=== PATIENT | female | born 1955 | race Caucasian/White ===

== ENCOUNTER 2022-04-29 11:37 | Emergency (ER) | payer MEDICARE, OTHER ==
[~2022-04-29] VITALS: Ht 162.6 cm; Wt 90.7 kg
[2022-04-29] MEDS ORDERED: Ativan0.5 MG PO (11:58)
[2022-04-29] MEDS ORDERED: DULO60 PO (11:58)
[2022-04-29] MEDS ORDERED: CLOP75 PO (11:58)
[2022-04-29] MEDS ORDERED: ISOSORBIDE MONO30 MG PO (11:58)
[2022-04-29] MEDS ORDERED: ELIQUIS5 M2 PO (12:02)
[2022-04-29] MEDS ORDERED: Methocarbamol500 MG PO (12:02)
[2022-04-29] MEDS ORDERED: Zestril40 MG PO (12:02)
[2022-04-29] MEDS ORDERED: SUBVENITE150 M1 PO (12:02)
== END 2022-04-29 12:11 | disposition home or self-care (01) ==
LOC: ER 11:37
DX: Z76.0 Encounter for issue of repeat prescription (principal); Z88.0 Allergy status to penicillin; Z88.5 Allergy status to narcotic agent; Z79.899 Other long term (current) drug therapy; Z79.01 Long term (current) use of anticoagulants
CPT/HCPCS: 99281

== ENCOUNTER → 2022-09-17 | Outpatient (CLI) | payer MEDICARE, OTHER ==
[~2022-09-17] MED LIST: Ativan0.5 MG PO; CLOP75 PO; DULO60 PO; ELIQUIS5 M2 PO; ISOSORBIDE MONO30 MG PO; Methocarbamol500 MG PO; SUBVENITE150 M1 PO; Zestril40 MG PO
== END | disposition home or self-care (01) ==
LOC: LAB 17:10 → LAB SHORT 17:10
DX: R30.0 Dysuria (principal)
CPT/HCPCS: 87086

== ENCOUNTER 2023-01-22 08:46 | Emergency (ER) | payer MEDICARE, OTHER ==
[~2023-01-22] VITALS: Ht 167.6 cm; Wt 90.7 kg
[~2023-01-22 08:46] MED LIST changes: +AMLODIPINE BESYL5 MG PO; +ATOR40TA PO; +CARVEDILOL25 M9 PO; +DOXAZOSIN MESYLA1 M2 PO; +HYDCHL25 PO; +LAMO25 PO; +LURASIDONE HCL20 MG PO; +LURASIDONE HCL40 MG PO; +METFORMIN HCL500 M3 PO; +PANTOPRAZOLE SO40 M2 PO; +TRESIBA FL100 UNIT/2 SC; +Ventolin/Prove6.7 GM INH
[2023-01-22 09:41] VITALS: BP 146/78
== END 2023-01-22 10:09 | disposition home or self-care (01) ==
LOC: ER 08:46
DX: G47.00 Insomnia, unspecified (principal); T50.995A Adverse effect of other drugs, medicaments and biological substances, initial encounter; I50.9 Heart failure, unspecified; I25.10 Atherosclerotic heart disease of native coronary artery without angina pectoris; I25.2 Old myocardial infarction; E11.9 Type 2 diabetes mellitus without complications; E05.90 Thyrotoxicosis, unspecified without thyrotoxic crisis or storm; Z88.0 Allergy status to penicillin; Z88.5 Allergy status to narcotic agent; X58.XXXA Exposure to other specified factors, initial encounter
CPT/HCPCS: 99284

== ENCOUNTER 2024-01-10 13:22 | Observation (INO) | payer MEDICARE, OTHER ==
[~2024-01-10] VITALS: Ht 162.6 cm; Wt 94.3 kg
[2024-01-10 14:10] LABS: BASOPHILS ABSOLUTE AUTO 0.07 K/mm3 (0.00-0.23); BASOPHILS PERCENT AUTO 1 % (0-2); EOSINOPHILS ABSOLUTE AUTO 0.19 K/mm3 (0.00-0.68); EOSINOPHILS PERCENT AUTO 2 % (0-6); Hematocrit 48.8 % (33.0-51.0); Hemoglobin 16.3 g/dL (11.5-16.0); IMMATURE GRAN ABSOLUTE AUTO 0.03 K/mm3 (0.00-0.10); IMMATURE GRAN PERCENT AUTO 0 % (0-1); LYMPHOCYTES ABSOLUTE AUTO 1.94 K/mm3 (0.84-5.20); LYMPHOCYTES PERCENT AUTO 17 % (21-46); MONOCYTES PERCENT AUTO 5 % (4-13); Mean Corpuscular HGB 30.1 pg (26.0-34.0); Mean Corpuscular HGB Conc 33.4 g/dL (31.5-36.5); Mean Corpuscular Volume 90 fL (80-100); Mean Platelet Volume 10.3 fL (9.1-12.4); NEUTROPHILS ABSOLUTE AUTO 8.57 K/mm3 (1.96-9.15); NEUTROPHILS PERCENT AUTO 75 % (41-73); Platelet Count 281 K/mm3 (150-400); RDW Coefficient Variation 13.7 % (11.7-14.2); RDW Standard Deviation 45.5 fL (35.1-46.3); Red Blood Cell Count 5.41 M/mm3 (3.80-5.20)
[2024-01-10 14:20] LABS: Ethanol (Alcohol), Blood, Med <3 mg/dL; Salicylate 4.3 mg/dL (2.8-20.0)
[2024-01-10 14:31] LABS: Acetaminophen, Random <2.0 ug/mL (10.0-30.0); Alanine Aminotransfer (ALT/SGP 15 U/L (12-78); Albumin, Blood 3.7 g/dL (3.4-5.0); Albumin/Globulin Ratio 0.9 (0.8-1.8); Alk Phos 110 U/L (50-136); Anion Gap 9 mmol/L (3-11); Aspartate Aminotrans (AST/SGOT 14 U/L (12-37); Bilirubin, Total 0.5 mg/dL (0.1-1.0); Blood Urea Nitrogen 20 mg/dL (8-24); Bun/Creatinine Ratio 19.2 (12.0-20.0); CO2, Blood 24 mmol/L (21-32); Calcium, Blood 9.5 mg/dL (8.5-10.1); Chloride, Blood 108 mmol/L (98-108); Creatinine, Blood 1.04 mg/dL (0.40-1.00); Glomerular Filtration Rate 58 (60-); Glucose, Blood 190 mg/dL (70-99); Potassium, Blood 4.2 mmol/L (3.5-5.5); Sodium, Blood 137 mmol/L (136-145); Total Protein, Blood 7.7 g/dL (6.4-8.2)
[2024-01-10] MEDS ORDERED: LORazepam 1 MG Tab PO ONE (14:55)
[2024-01-10 15:47] LABS: Source, Urine Clean Catch
[2024-01-10 15:51] LABS: Appearance, Urine Clear (Clear); Bilirubin, Urine Neg (Neg); Blood, Urine 5+ (Neg); Glucose Qualitative, Urine Neg (Neg); Ketones, Urine Neg (Neg); Leukocyte Esterase, Urine Neg (Neg); Nitrite, Urine Neg (Neg); Protein, Urine 1+ (Neg); Urobilinogen, Urine NORM (Normal); pH, Urine 6.5 (5.0-8.0)
[2024-01-10 16:01] LABS: Color, Urine Pale Yellow (P-Yellow)
[2024-01-10 16:02] LABS: Bacteria Few /hpf; Squamous Epithelial Cells Mod /hpf (Few); White Blood Cells, Urine 0-2 /hpf (0-5)
[2024-01-10 16:03] LABS: Red Blood Cells, Urine 50-100 /hpf (0-2)
[2024-01-10 16:07] LABS: U Amphetamine Screen Not Detected; U Barbituate Screen Not Detected; U Benzodiazapine Screen Not Detected; U Buprenorphine Screen Not Detected; U Cannabinoids Screen DETECTED; U Cocaine Screen Not Detected; U Methadone Screen Not Detected; U Methamphetamine Screen Not Detected; U Opiates Screen Not Detected; U Oxycodone Screen Not Detected; U Phencyclidine Screen Not Detected
[2024-01-10 16:51] LABS: Influenza A, PCR NEGATIVE (NEGATIVE); Influenza B, PCR NEGATIVE (NEGATIVE); Resp Syncytial Virus, PCR NEGATIVE (NEGATIVE); SARS-Cov-2 (COVID-19) PCR, MMC NEGATIVE (NEGATIVE)
[2024-01-10] MEDS ORDERED: Acetaminophen 500 MG Tab PO ONE (20:20)
[2024-01-11] MEDS ORDERED: LISI20 PO (10:52)
[2024-01-11] MEDS ORDERED: METF500 PO (10:54)
[2024-01-11] MEDS ORDERED: NITR.4SL SL (10:56)
[2024-01-11] MEDS ORDERED: FARXIGA5 MG PO (10:56)
[2024-01-11] MEDS ORDERED: STEGLATRO15 MG PO (11:05)
[2024-01-11] MEDS ORDERED: PROP50 PO (11:05)
[2024-01-11] MEDS ORDERED: Albuterol HFA200 ACT/6.7 GM INH INH PRN (11:40)
[2024-01-11] MEDS ORDERED: LORazepam 0.5 MG Tab PO PRN (12:35)
[2024-01-11] MEDS ORDERED: Atorvastatin 40 MG Tab PO ONE (18:45)
[2024-01-11] MEDS ORDERED: Methocarbamol 500 MG Tab PO SCH (21:00)
[2024-01-11] MEDS ORDERED: Doxazosin Mesylate 2 MG Tab PO SCH (21:00)
[2024-01-11] MEDS ORDERED: Apixaban 5 MG Tab PO SCH (21:00)
[2024-01-11] MEDS ORDERED: AmLODIPine Besylate 5 MG Tab PO SCH (21:00)
[2024-01-11] MEDS ORDERED: Carvedilol 25 MG Tab PO SCH (21:00)
[2024-01-12] MEDS ORDERED: Pantoprazole Sodium 40 MG Tab PO SCH (06:00)
[2024-01-12] MEDS ORDERED: Acetaminophen 500 MG Tab ONE (06:40)
[2024-01-12] MEDS ORDERED: Acetaminophen 500 MG Tab PO ONE (06:50)
[2024-01-12 08:39] VITALS: BP 143/82
[2024-01-12] MEDS ORDERED: HydroCHLOROthiazide 25 mg Tab PO SCH (09:00)
[2024-01-12] MEDS ORDERED: Lisinopril 20 MG Tab PO SCH (09:00)
[2024-01-12] MEDS ORDERED: Insulin Glargine-Yfgn 100 Unit/mL 3 ML SYR SC SCH (09:00)
[2024-01-12] MEDS ORDERED: Clopidogrel Bisulfate 75 MG Tab PO SCH (09:00)
[2024-01-12] MEDS ORDERED: DULoxetine HCL 60 MG Capsule DR PO SCH (09:00)
[2024-01-12] MEDS ORDERED: Methocarbamol 500 MG Tab PO PRN (10:45)
[2024-01-12] MEDS ORDERED: Nitroglycerin 0.4 MG SUBL SL PRN (10:55)
[2024-01-13] MEDS ORDERED: Atorvastatin 40 MG Tab PO SCH (09:00)
[2024-01-17] MEDS ORDERED: ABILIFY MYCITE2 M2 PO (14:47)
== END 2024-01-12 13:06 | disposition other institution (70) ==
LOC: ER 13:22 → EOR 13:23
PROVIDERS: Emergency Medicine; ADMIT Emergency Medicine
DX: F33.9 Major depressive disorder, recurrent, unspecified (principal); E11.9 Type 2 diabetes mellitus without complications; I50.9 Heart failure, unspecified; I25.10 Atherosclerotic heart disease of native coronary artery without angina pectoris; Z95.5 Presence of coronary angioplasty implant and graft; I48.91 Unspecified atrial fibrillation; J45.909 Unspecified asthma, uncomplicated; F17.210 Nicotine dependence, cigarettes, uncomplicated; Z88.0 Allergy status to penicillin; Z88.5 Allergy status to narcotic agent; Z79.4 Long term (current) use of insulin; Z79.899 Other long term (current) drug therapy
CPT/HCPCS: 0241U; 80053; 80320; 81001; 82947; 85025; 93005; 93010; 99285-25; A9270; G0378; G0480; J1815

== ENCOUNTER 2024-01-12 10:49 | Inpatient (IN) | payer MEDICARE, OTHER ==
[~2024-01-12] VITALS: Ht 162.6 cm; Wt 140.0 kg
[~2024-01-12 10:49] MED LIST changes: +FARXIGA5 MG PO; +LISI20 PO; +METF500 PO; +NITR.4SL SL; +PROP50 PO; +STEGLATRO15 MG PO
[2024-01-12 13:41] VITALS: BP 134/86
--- NOTE | 2024-01-12 13:42 | NUR ---
Patient admitted at 1306, belongings sorted, documented and placed in belongings bin and safe.
[2024-01-12] MEDS ORDERED: FLU VACC TS2024-25(6MOS UP)/PF 45 MCG/0.5 ML SYRINGE IM ONE (13:45)
[2024-01-12] MEDS ORDERED: QUEtiapine Fumarate 25 MG Tab PO PRN (13:45)
[2024-01-12 13:50] VITALS: BP 134/86
[2024-01-12] MEDS ORDERED: Acetaminophen 325 MG TABLET PO PRN (15:30)
[2024-01-12] MEDS ORDERED: Nitroglycerin 0.4 MG SUBL SL PRN (15:35)
[2024-01-12] MEDS ORDERED: Methocarbamol 500 MG Tab PO PRN (15:35)
[2024-01-12] MEDS ORDERED: LORazepam 0.5 MG Tab PO PRN (15:35)
[2024-01-12] MEDS ORDERED: Albuterol 2.5 MG/3 ML VIAL INH PRN (15:40)
--- NOTE | 2024-01-12 18:25 | NUR ---
SHIFT SUMMARY/ADMISSION NOTE PT AxOx4. PLEASANT AND COOPERATIVE WITH CARE. PT ARRIVED ON THE UNIT FROM ED AT APPROX 1306 TODAY. PT'S ADMISSION COMPLETED AND SHE WAS ORIENTED TO THE UNIT. PT REPORTS FEELING SUICIDAL WITH INTENT IF SHE HAD THE MEANS, WHICH SHE DOES NOT HERE. SHE REPORTS HER METHOD WOULD BE TO OD ON MEDICATION OR JUMP OFF A NILO. PT STATES SHE FEELS SAFE HERE. PT DENIES HISTORY OF SI, STATES SHE WAS TRIGGERED BY FAMILY CONFLICT R/T HER GAMBLING ADDICTION, BUT DOES ADMIT TO HISTORY OF DEPRESSION. PT PRESENTS TEARFUL BUT IS ABLE TO REORIENT AND FOCUS ON SUPPORTIVE FACTORS. PT WAS ABLE TO CALL AND TALK WITH HER SON, RAZ ON THE PHONE. SHE IS CURRENTLY RESTING IN THE SENSORY ROOM. DENIED ANY NEEDS AT THIS TIME.
[2024-01-12] MEDS ORDERED: AmLODIPine Besylate 5 MG Tab PO SCH (21:00)
[2024-01-12] MEDS ORDERED: Carvedilol 25 MG Tab PO SCH (21:00)
[2024-01-12] MEDS ORDERED: Lisinopril 20 MG Tab PO SCH (21:00)
[2024-01-12] MEDS ORDERED: Apixaban 5 MG Tab PO SCH (21:00)
[2024-01-12 22:09] VITALS: BP 102/77
--- NOTE | 2024-01-13 04:33 | NUR ---
PATIENT WAS IN GROUP ROOM AT BEGINNING OF SHIFT, WATCHING A MOVIE WITH PEERS AND STAFF. SHE WAS PLEASANT AND COOPERATIVE, INCLUDING TAKING EVENING MEDICATIONS. SHE QUESTIONED HER MEDS, AND WAS EDUCATED. SHE WAS TOLD IT WAS GOOD TO ASK ABOUT YOUR MEDS. SHE WENT TO BED EARLY, BUT THEN WENT INTO THE SENSORY ROOM, WHERE SHE SLEPT ON THE BEANBAG CHAIR FOR A TIME. SHE THEN WENT BACK TO HER ROOM. SHE THEN RESTED ON HER BED WITH EYES CLOSED AND RESPIRATIONS CONFIRMED. SHE WAS UP EARLY REQUESTING COFFEE, WHICH WAS GIVEN. SHE HAD NO S/SX SUICIDAL IDEATION THIS SHIFT. SHE DID EXPRESS THAT SHE WAS "FEELING DEPRESSED".
[2024-01-13] MEDS ORDERED: HydroCHLOROthiazide 25 mg Tab PO SCH (09:00)
[2024-01-13] MEDS ORDERED: Atorvastatin 40 MG Tab PO SCH (09:00)
[2024-01-13] MEDS ORDERED: Insulin Glargine-Yfgn 100 Unit/mL 3 ML SYR SC SCH (09:00)
[2024-01-13] MEDS ORDERED: Pantoprazole Sodium 40 MG Tab PO SCH (09:00)
[2024-01-13] MEDS ORDERED: Doxazosin Mesylate 2 MG Tab PO SCH (09:00)
[2024-01-13] MEDS ORDERED: Clopidogrel Bisulfate 75 MG Tab PO SCH (09:00)
[2024-01-13] MEDS ORDERED: DULoxetine HCL 60 MG Capsule DR PO SCH (09:00)
[2024-01-13] MEDS ORDERED: DAPAGLIFLOZIN 5 MG PO SCH (13:00)
--- NOTE | 2024-01-13 16:50 | NUR ---
PATIENT HAS BEEN TEARY ON AND OFF ALL MORNING.SHE HAD BEEN OK UNTIL 1435. PT WAS CRYING AND FUSTERATED. I TOOK HER TO THE SIDE AND ALLOWED HER TO TALK. SHE SAID SHE IS CONFUSED ABOUT BEING HERE. SHE SAID SHE DOESN'T KNOW IF IT IS HER MEDICATIONS OR EVEYTHING ALL TOGETHER. SHE SAYS THAT SHE DOESN'T WANT TO TAKE TH FLU SHOT.. I DON'T EVEN DON'T KNOW WHAT MEDICATIONS IS IN IT.DAMN MEDICATION I AM NOT GOING TO TAKE IT. SHE SAYS SHE WAS NEVER SHOWED THE UNIT ONLY TO HER ROOM. I DON'T FEEL RIGHT FOR ME...IT'S NOT THE RIGHT PROGRAM.. I JUST SLEEP AND WALK AROUND. PUZZLES AND GAMES ARE GETTING ME WELL.. MY KIDS DON'T WANT ME. RAZ MY SON WILL IF I ASK HIM TOO. STATES DAUGHTER TOLD ME"GET IT TAKEN CARE OF."[facility]Y I FEEL SI NOW AT THIS TIME..I DON'T HAVE A PURPOSE. IT'S NOT HAPPY IN HERE. I'M GOING IN ALL DIRECTIONS. I WANT TO JUST RIP MY HEAD OFF AND THROW IT THROUGH THE WALL, BEAT THE CAO, THROW THINGS THROUGH THE WINDOWS. DON'T KNOW HOW TO GET WELL. GAVE HER SEROQUEL 12.5MG TO HELP WITH HER ANXIETY AT THIS TIME. AT 1630 ASKED PT HOW SHE WAS DOING. SHE SAID BETTER. HAS SMILE ON HER FACE AND WAS UP MINGLING IN THE MILIEU. JUST GOT OFF THE PHONE FROM SPEAKING TO HER DAUGHTER. WILL CONTINUE TO MONITOR.
[2024-01-13 22:08] VITALS: BP 103/63
--- NOTE | 2024-01-14 03:50 | NUR ---
PATIENT WAS IN GROUP ROOM WATCHING A MOVIE UPON RN ARRIVAL. SHE SPENT SOME TIME IN THE HALLWAY. REPORT STATED THAT SHE HAD SOME LOW POINTS DURING HER DAY, BUT SHE STATED THAT SHE "HAD A GREAT DAY". SHE WAS PLEASANT AND TALKATIVE, COOPERATIVE WITH CARES, INCLUDING EVENING MEDICATIONS. SHE PREFERS TO SEE THE MEDICATIONS ONE BY ONE AND KNOW THEIR NAMES. SHE WAS TOLD THAT IT IS GOOD TO KNOW WHAT YOU ARE TAKING. SHE HAD SNACKS AND DRINKS, GIVEN UPON REQUEST, AND WENT TO BED EARLY. SHE WAS NOTED TO BE IN BED RESTING WITH EYES CLOSED AND RESPIRATIONS CONFIRMED. SHE HAD NO S/SX SUICIDAL IDEATION THIS SHIFT.
[2024-01-14 08:34] VITALS: BP 115/67
--- NOTE | 2024-01-14 09:50 | NUR ---
PATIENT BS WAS 135 THIS MORNING. SHE IS IN GREAT SPIRITS. DENIES SI TODAY. SAID SHE SLEPT GOOD LAST NIGHT SO THINKS THAT WAS HELPFUL. AT 0944 C/O FACE STARTINF TO FEEL NUMD AND SHE FELT A LITTLE BIT DIZZY. VS T 98.3, P78, SATS 93% B/P 106/72. SHE JUST WALKED OUT FROM GROUP EXERCISES. ENCOURAGE TO SIT AND REST A LITTLE BEFORE GETTING UP TO DO ANYTHING. PATIENT AGREEABLE.MED COMPLAINT. ENCOUARGED TO DRINK MORE WATER TODAY. WILL CONTINUE TO MONITOR.
[2024-01-14 09:57] VITALS: BP 106/72
--- NOTE | 2024-01-14 16:31 | NUR ---
SHIFT SUMMARY PATIENT HAS NOT BEEN CRYING TODAY LIKE YESTERDAY. STATES THAT HER UPPER LIP IS FEELING A BIT NUMB. SPEECH IS CLEAR. NO NOTICABLE ODD LIP MOVEMENT NOTED. SHE HAS BEEN UP IN GROUPS THROUGH THE DAY. DENIES TO BE SI. OVER ALL SHE HAS HAD A GOOD DAY.
[2024-01-14 22:25] VITALS: BP 132/78
--- NOTE | 2024-01-15 01:20 | NUR ---
PATIENT C/O NAUSEA AND VOMITING. STATES SHE THREW UP "EVERYTHING I ATE FOR THE LAST TWO DAYS". STATES SHE HASN'T FELT WELL SINCE DINNER, AND THAT SHE HAD A BOWEL MOVEMENT TODAY. GIVEN SEROQUEL AND ATIVAN FOR NAUSEA AND ANXIETY. VS TAKEN, WNL AT T-98.1F, BP 135/77, P-88, D5TFB-59%. CBG TAKEN: 123. NO PAIN TO ABDOMINAL AREA, NO OTHER COMPLAINTS, NAUSEA AND VOMITING, UNWITNESSED.
--- NOTE | 2024-01-15 04:32 | NUR ---
PATIENT UP AT BEGINNING OF SHIFT, IN GROUP ROOM WATCHING A MOVIE WITH STAFF AND PEERS. SHE HAD A LARGE SNACK AFTER THE MOVIE. SHE WAS PLEASANT AND COOPERATIVE WITH CARES, INCLUDING EVENING MEDICATIONS. SHE WAS JOKING AND SMILING, TALKING ABOUT HOW "EACH DAY IS BETTER". SHE WENT TO BED AFTER HER SNACK, AND GOT UP ABOUT 0100, STATING "I'VE BEEN VOMITING. i VOMITED EVERYTHING I ATE TODAY AND YESTERDAY". SHE DENIED CONSTIPATION. VS TAKEN, ALL WNL. CBG TAKEN AND WAS 123, WHICH IS HER BASELINE. SHE WAS GIVEN ATIVAN AND SEROQUEL FOR NAUSEA AND ANXIETY, AND WENT INTO THE BATHROOM, WHERE SHE REPORTED THAT SHE "DRY HEAVED". SHE WAS THEN GIVEN SPRITE, AND STATED THAT MADE HER FEEL BETTER. SHE WAS ABLE TO GO BACK TO BED, WHERE SHE WAS NOTED TO BE RESTING QUIETLY WITH EYES CLOSED AND RESPIRATIONS CONFIRMED. SHE HAD NO S/SX SUICIDAL IDEATION NOTED THIS SHIFT.
[2024-01-15 09:17] VITALS: BP 128/77
[2024-01-15] MEDS ORDERED: Nicotine 21 MG PATCH TOP SCH (10:50)
[2024-01-15] MEDS ORDERED: ARIPiprazole 2 MG Tablet PO SCH (12:00)
--- NOTE | 2024-01-15 16:08 | NUR ---
Pt is A&O, calm, cooperative, eye contact is good. Pt's mood is depressed, affect is labile. Pt denies SI, HI, and hallucinations. Pt stated that she was nauseous and vomiting overnight, but this was unwitnessed by staff. She denied any pain. Pt was at times weepy during the morning and c/o being tired. Provider has ordered aripiprazole 2mg qday; she stated that she has taken this before and received today's dose at 1126. Pt requested a nicotine patch, order was placed, and patch administered at 1126. Pt showered today. She was active in the milieu, participating in group activities and interacting with peers and staff. Pt is med compliatn. She c/o anxiety and received PRN quetiapine at 1423; no other PRNs given.
[2024-01-15 19:33] VITALS: BP 102/75
--- NOTE | 2024-01-15 20:00 | NUR ---
BEGINNING SHIFT ASSESSMENT PT ENGAGING IN SOCIALIZING IN TV ROOM WITH OTHER PATIENTS AND STAFF. PT DENIES SI AT THIS TIME BUT INFORMS OF MH SITUATIONS THAT BROUGHT HER TO ED. PT REPORTS FAMILY REFUSED TO BRING HER IN SO SHE DROVE HERSELF DUE TO BEING FEARFUL OF HARMING SELF. PT DECLINES HS MEDS AT THIS TIME. PT REPORTS TOLERABLE DISCOMFORT TO SHOULDERS.
--- NOTE | 2024-01-16 06:17 | NUR ---
SHIFT SUMMARY PT COOPERATIVE AND PLEASANT. LIKES TO VISIT W/ STAFF AND PARTICIPATE W/ SOCIALIZATION. PT UP SEVERAL TIMES T/O NIGHT AND REPORTED NIGHTMARES THIS AM. JUSTIN PATCH REMOVED AT THAT TIME. PT REQUESTED TO LAY IN SENSORY ROOM AND FELL ASLEEP ON MILES BAG. PT HAD NO REPORTS OF N/V THIS SHIFT AND REPORTS FEELING BETTER. PT REQUESTED TYLENOL @2339 FOR 7/10 SHOULDER PAIN THAT WAS RELIEVED W/ SLEEP. WILL CONTINUE TO MONITOR PER UNIT PROTOCOLS.
[2024-01-16 08:30] VITALS: BP 103/76
--- NOTE | 2024-01-16 16:09 | NUR ---
Pt is A&O, calm, cooperative, eye contact is good. She presents with a euthymic mood, "Much better, I'm ready to start moving ahead." Affect is full-range and congruent with mood. Pt denies Si, HI, and hallucinations. Pt c/o lower back pain 3/10w, but stated that his is her baseline. She also c/o her righter ear "feels plugged, I'm having trouble hearing people," and thinks that she might be getting an ear or sinus infection. Pt is med compliant. In the afternoon she c/o shoulder pain and spasms 10/10w and received PRN methocarbamol at 1408, which brought her pain down to 5/10w. Pt was active on the unit all day, watching TV and socializing with peers and staff.
--- NOTE | 2024-01-16 16:34 | NUR ---
At approx 1620 pt asked for vitals to be taken. BP-128/72 HR-86 T-97.6 POx-97 R-16. She c/o feeling anxious and was somewhat weepy. Pt took PRN lorazepam 0.5mg at about 1635.
[2024-01-16 16:38] VITALS: BP 128/72
--- NOTE | 2024-01-16 19:39 | NUR ---
PATIENT IS IN A GOOD MOOD TONIGHT. DENIES SI,HI,AH,VH AT THIS TIME. SAID SHE HAD COME SHOULDER PAIN AND WILL GIVE HER ROBAXIN AT 2100 WITH HER REGULAR MEDS AND TYLENOL SHE ASKED FOR ALSO. GIVEN A BIBLE ON HER REQUEST AND SHE AHS BEEN IN HER ROOM READING IT. WILL CONTINUE TO MONITOR HER.
[2024-01-16 23:57] VITALS: BP 109/77
--- NOTE | 2024-01-17 04:59 | NUR ---
SHIFT SUMMARY; SLEEPING WELL THROUGH THE NIGHT. GIVEN TYLENOL, ROBAXIN, ND SEROQUEL BEFORE BED. PATIENT STAYED UP TO WATCH FOOTBALL GAME TILL THE END. SHE WAS LAUGHING AND WAS EXCITED. WILL CONTINUE TO MONITOR.
[2024-01-17 09:09] VITALS: BP 111/73
--- NOTE | 2024-01-17 14:07 | NUR ---
ASSUMED PT CARE @07. PT AA&O TO PERSON, PLACE, AND SITUATION. DENIES SI. PT FRUSTRATED THIS AM SHE DID NOT REVIEVE AM MEDICATION PASS UNTIL 921. EDUCATION PROVIDED ON TIME ALLOWED FOR MEDICATION PASS. PT THEN HAD AN UNEVENTFUL MORNING. AFTER LUNCH PT RECIEVED A PHONE CALL FROM HER SON. SHE THEN FORCEFULLY TOSSED THE PHONE THROUGH THE WINDOW SLOT BECOMING LOUD TELLING STAFF THAT WE "LIED TO HER" SHE REPORTED THAT SON HAD CALLED AND SHE DID NOT RECIEVE MESSAGE. PT THEN PROCEEDED TO EXPRESS ANGER THAT SHE HAD NOT BEEN ABLE TO SHAVE IN THREE DAYS. ATTEMPTED TO APOLOGIZE. BUT PT STOMPED DOWN HALLWAY. PT THEN REPORTED TO THIS RN THAT SHE IS VOL AND THAT SHE IS NO LONGER SUICIDAL AND WANTED TO GO HOME. PT EDUCATED ON RISK OF LEAVING AMA. PT REPORTS THAT SHE IS NO LONGER SUICIDAL AND WOULD LIKE TO DISCHARGE. DR. GUEVARA NOTIFIED AMA PAPERWORK SIGNED. DISCHARGE ORDER PLACED
[2024-01-17] MEDS ORDERED: ABILIFY MYCITE2 M2 PO ×2 (14:47)
== END 2024-01-17 15:45 | disposition home or self-care (01) | DRG 885 ==
LOC: BHU 10:49
PROVIDERS: ADMIT Psychiatry & Neurology Psychiatry
DX: F33.2 Major depressive disorder, recurrent severe without psychotic features (principal); F43.21 Adjustment disorder with depressed mood; E66.9 Obesity, unspecified; E11.9 Type 2 diabetes mellitus without complications; I11.0 Hypertensive heart disease with heart failure; I25.10 Atherosclerotic heart disease of native coronary artery without angina pectoris; F43.25 Adjustment disorder with mixed disturbance of emotions and conduct; I48.91 Unspecified atrial fibrillation; Z95.5 Presence of coronary angioplasty implant and graft; I50.9 Heart failure, unspecified; Z87.442 Personal history of urinary calculi; Z90.710 Acquired absence of both cervix and uterus; Z90.722 Acquired absence of ovaries, bilateral; Z90.49 Acquired absence of other specified parts of digestive tract; Z90.89 Acquired absence of other organs; F17.210 Nicotine dependence, cigarettes, uncomplicated; Z88.0 Allergy status to penicillin; Z88.5 Allergy status to narcotic agent; Z91.041 Radiographic dye allergy status; Z79.02 Long term (current) use of antithrombotics/antiplatelets; Z79.899 Other long term (current) drug therapy; Z79.01 Long term (current) use of anticoagulants; Z79.811 Long term (current) use of aromatase inhibitors
CPT/HCPCS: 82947; A9270; J1815

== ENCOUNTER → 2024-04-08 | Outpatient (CLI) | payer MEDICARE, OTHER ==
[~2024-04-08] MED LIST changes: +ABILIFY MYCITE2 M2 PO
== END ==
LOC: LAB 17:17 → LAB SHORT 17:17
DX: N39.0 Urinary tract infection, site not specified (principal)
CPT/HCPCS: 87077; 87086; 87186

== ENCOUNTER → 2024-12-13 | Outpatient (CLI) | payer MEDICARE ==
[~2024-12-13] MED LIST changes: +Amitriptyline H10 MG PO; +KLOR-CON 1010 ME9 PO; +LAMOTRIGINE100 M1 PO; +MOUNJARO5 MG/0.5 M SQ; +Nitrofurantoin100 M1 PO
== END | disposition home or self-care (01) ==
LOC: LAB SHORT 18:05 → LAB 18:05
DX: R30.0 Dysuria (principal)
CPT/HCPCS: 87077; 87086; 87186

== ENCOUNTER 2024-12-17 18:51 | Observation (INO) | payer MEDICARE ==
[~2024-12-17] VITALS: Ht 162.6 cm; Wt 74.8 kg
[~2024-12-17 18:51] MED LIST changes: -Amitriptyline H10 MG PO; -KLOR-CON 1010 ME9 PO; -LAMOTRIGINE100 M1 PO; -MOUNJARO5 MG/0.5 M SQ; -Nitrofurantoin100 M1 PO
[2024-12-17 19:11] LABS: BASOPHILS ABSOLUTE AUTO 0.03 K/mm3 (0.00-0.23); BASOPHILS PERCENT AUTO 0 % (0-2); EOSINOPHILS ABSOLUTE AUTO 0.14 K/mm3 (0.00-0.68); EOSINOPHILS PERCENT AUTO 2 % (0-6); Hematocrit 52.9 % (33.0-51.0); Hemoglobin 17.9 g/dL (11.5-16.0); IMMATURE GRAN ABSOLUTE AUTO 0.02 K/mm3 (0.00-0.10); IMMATURE GRAN PERCENT AUTO 0 % (0-1); LYMPHOCYTES ABSOLUTE AUTO 0.74 K/mm3 (0.84-5.20); LYMPHOCYTES PERCENT AUTO 9 % (21-46); MONOCYTES ABSOLUTE AUTO 0.41 K/mm3 (0.16-1.47); MONOCYTES PERCENT AUTO 5 % (4-13); Mean Corpuscular HGB Conc 33.8 g/dL (31.5-36.5); Mean Corpuscular Volume 92 fL (80-100); NEUTROPHILS ABSOLUTE AUTO 7.05 K/mm3 (1.96-9.15); NEUTROPHILS PERCENT AUTO 84 % (41-73); NRBC ABSOLUTE 0.00 K/mm3 (0.00-0.02); NRBC Auto 0.0 /100 WBC (0.0-0.2); Platelet Count 251 K/mm3 (150-400); RDW Coefficient Variation 13.5 % (11.7-14.2); RDW Standard Deviation 45.8 fL (35.1-46.3)
[2024-12-17] MEDS ORDERED: Nitrofurantoin100 M1 PO (19:20)
[2024-12-17] MEDS ORDERED: KLOR-CON 1010 ME9 PO (19:20)
[2024-12-17] MEDS ORDERED: Amitriptyline H10 MG PO (19:21)
[2024-12-17] MEDS ORDERED: LAMOTRIGINE100 M1 PO (19:22)
[2024-12-17] MEDS ORDERED: MOUNJARO5 MG/0.5 M SQ (19:24)
[2024-12-17] MEDS ORDERED: Metoprolol Tartrate 1 MG/ML 5 ML VIAL IV ONE (19:25)
[2024-12-17 19:36] LABS: Alanine Aminotransfer (ALT/SGP 135.0 U/L (12-78); Albumin, Blood 3.7 g/dL (3.4-5.0); Albumin/Globulin Ratio 0.8 (0.8-1.8); Anion Gap 13.0 mmol/L (3-11); Aspartate Aminotrans (AST/SGOT 72.0 U/L (12-37); Bilirubin, Total 1.2 mg/dL (0.1-1.0); Blood Urea Nitrogen 13.0 mg/dL (8-24); CO2, Blood 23.0 mmol/L (21-32); Calcium, Blood 10.2 mg/dL (8.5-10.1); Chloride, Blood 102.0 mmol/L (98-108); Creatinine, Blood 0.86 mg/dL (0.40-1.00); Globulin, Blood 4.4 g/dL (2.2-4.0); Glucose, Blood 130.0 mg/dL (70-99); Magnesium, Blood 2.0 mg/dL (1.6-2.4); Potassium, Blood 4.0 mmol/L (3.5-5.5); Sodium, Blood 134.0 mmol/L (136-145); Total Protein, Blood 8.1 g/dL (6.4-8.2)
[2024-12-17] MEDS ORDERED: Diltiazem HCl 5 MG / ML 5ML Vial IV ONE (22:35)
[2024-12-17 23:37] LABS: Thyroid Stimulating Hormone 0.565 uIU/mL (0.360-4.800)
[2024-12-18] VITALS (15 sets, daily range): BP systolic 93–139; BP diastolic 51–82
[2024-12-18] MEDS ORDERED: NS 1,000 ML IV SCH (00:35)
[2024-12-18] MEDS ORDERED: Albuterol 2.5 MG/3 ML VIAL INH PRN (04:20)
[2024-12-18 05:13] LABS: BASOPHILS ABSOLUTE AUTO 0.03 K/mm3 (0.00-0.23); BASOPHILS PERCENT AUTO 1 % (0-2); EOSINOPHILS ABSOLUTE AUTO 0.19 K/mm3 (0.00-0.68); EOSINOPHILS PERCENT AUTO 3 % (0-6); Hematocrit 48.4 % (33.0-51.0); Hemoglobin 16.6 g/dL (11.5-16.0); IMMATURE GRAN ABSOLUTE AUTO 0.01 K/mm3 (0.00-0.10); IMMATURE GRAN PERCENT AUTO 0 % (0-1); LYMPHOCYTES ABSOLUTE AUTO 0.73 K/mm3 (0.84-5.20); LYMPHOCYTES PERCENT AUTO 11 % (21-46); MONOCYTES ABSOLUTE AUTO 0.59 K/mm3 (0.16-1.47); MONOCYTES PERCENT AUTO 9 % (4-13); Mean Corpuscular HGB Conc 34.3 g/dL (31.5-36.5); Mean Corpuscular Volume 90 fL (80-100); NEUTROPHILS ABSOLUTE AUTO 4.89 K/mm3 (1.96-9.15); NEUTROPHILS PERCENT AUTO 76 % (41-73); NRBC ABSOLUTE 0.00 K/mm3 (0.00-0.02); NRBC Auto 0.0 /100 WBC (0.0-0.2); Platelet Count 199 K/mm3 (150-400); RDW Coefficient Variation 13.3 % (11.7-14.2); RDW Standard Deviation 44.7 fL (35.1-46.3)
--- NOTE | 2024-12-18 05:33 | NUR ---
PT ARRIVAL TO ICU PT ARRIVED VIA GURNEY TO ICU 3 AT 0415. PT ABLE TO STAND AND TRANSFER TO BED. PT A/Ox4 AND ABLE TO MAKE NEEDS KNOWN. VSS ON ARRIVAL TO UNIT, HR 80s ON CARDIZEM GTT AT 8 MG/HR, NOW ON SB. MONITOR SHOWS AFIB RYTHM, RATE 80s. SPO2>90% ON 2L NC. PT STATES THAT SHE HAS HAD TROUBLE KEEPING FOOD DOWN AND KEEPING FOOD IN THE HOME, HAS MEALS ON WHEELS, BUT THE FOOD IS TOO SPICY, BECAUSE OF THIS AND HER UTI SHE HAS RECENTLY LOST A LOT OF WEIGHT. PT HAS ATTENDS IN PLACE.
[2024-12-18 06:07] LABS: Alanine Aminotransfer (ALT/SGP 95.0 U/L (12-78); Albumin, Blood 3.1 g/dL (3.4-5.0); Albumin/Globulin Ratio 0.8 (0.8-1.8); Anion Gap 11.0 mmol/L (3-11); Aspartate Aminotrans (AST/SGOT 36.0 U/L (12-37); Bilirubin, Total 0.8 mg/dL (0.1-1.0); Blood Urea Nitrogen 13.0 mg/dL (8-24); CO2, Blood 24.0 mmol/L (21-32); Calcium, Blood 9.1 mg/dL (8.5-10.1); Chloride, Blood 105.0 mmol/L (98-108); Creatinine, Blood 0.84 mg/dL (0.40-1.00); Globulin, Blood 3.7 g/dL (2.2-4.0); Glucose, Blood 98.0 mg/dL (70-99); Potassium, Blood 3.1 mmol/L (3.5-5.5); Sodium, Blood 137.0 mmol/L (136-145); Total Protein, Blood 6.8 g/dL (6.4-8.2)
--- NOTE | 2024-12-18 07:25 | NUR ---
Assumed care of pt at 0700. Pt sleeping on bed, rouses easily to stimulation. Pt aox4. Dr. Coe to room to update poc. Potential discharge discussed. Pt to be NPO at this time for possible cardioversion. Pt is agreeable. Pt on 2l via nc at this time, o2 sat 94%. Lungs clear. Afib rate of 80-90s via continuous monitor, bp stable w/ systolics in the 110s. Pt afebrile. Call light w/ in reach. Plan of care ongoing.
[2024-12-18] MEDS ORDERED: Nitrofurantoin/Nitrofuran Mac 100 MG Cap PO SCH (09:00)
[2024-12-18] MEDS ORDERED: DULoxetine HCL 60 MG Capsule DR PO SCH (09:00)
[2024-12-18] MEDS ORDERED: Potassium Chloride 10 Meq Tablet SA PO SCH (09:00)
[2024-12-18] MEDS ORDERED: Insulin Glargine-Yfgn 100 Unit/mL 3 ML SYR SC SCH ×2 (09:00)
[2024-12-18] MEDS ORDERED: Insulin Glargine,Hum.Rec.Anlog 100 UNIT/ML 3MLSYR SC SCH ×2 (09:00)
--- NOTE | 2024-12-18 14:20 | NUR ---
DR. JOHN AND DR. VELA CONTACTED, PT SPONTANEOUSLY CONVERTS TO SINUS RHYTHM RATE OF 70S. PLANS FOR POTENTIAL DISCHARGE DISCUSSED. PT UPDATED AND IS AGREEABLE
--- NOTE | 2024-12-18 17:59 | NUR ---
PT PENDING DISCHARGE HOME. FOLLOW UP DIRECTIONS DISCUSSED. RETURN TO HOSPTIAL DIRECTIONS DISCUSSED. PT TO FOLLOW UP W/ PCP IN ONE WEEK AND STORAGE FACILITY RENTAL CLERK AT NEXT SCHEDULED APPT. PT VERBALIZED UNDERSTANDING. PT EXPRESSES CONCERN RETURNING HOME, STS SHE IS AFRAID OF BEING ALONE AFTER HER X4 YEARS AGO. PT ENCOURAGED TO REACH OUT TO FAMILY AND RETURN TO HOSPITAL PRECAUTIONS DISCUSSED. PT STS HER SISTER WILL COME STAY WITH HER TONIGHT AND HER FRIENDS/NEIGHBORS WILL PROVIDE RIDE HOME. NO MEDICATION CHANGES UPON DISCHARGE. PT EATS DINNER INDEPENDENTLY AND IS AWAITING RIDE HOME IN ROOM. VSS. PLAN OF CARE ONGOING.
== END 2024-12-18 18:15 | disposition home or self-care (01) ==
LOC: ER 18:51 → ICUE 18:52 → PCU 18:52 → ICUE 12-18 04:15
PROVIDERS: Emergency Medicine; Student in an Organized Health Care Education/Training Program; ADMIT Internal Medicine
DX: I48.0 Paroxysmal atrial fibrillation (principal); I25.10 Atherosclerotic heart disease of native coronary artery without angina pectoris; K21.9 Gastro-esophageal reflux disease without esophagitis; E11.9 Type 2 diabetes mellitus without complications; I11.0 Hypertensive heart disease with heart failure; I50.9 Heart failure, unspecified; E05.90 Thyrotoxicosis, unspecified without thyrotoxic crisis or storm; R74.01 Elevation of levels of liver transaminase levels; N39.0 Urinary tract infection, site not specified; B96.20 Unspecified Escherichia coli [E. coli] as the cause of diseases classified elsewhere; E78.5 Hyperlipidemia, unspecified; J44.9 Chronic obstructive pulmonary disease, unspecified; F17.210 Nicotine dependence, cigarettes, uncomplicated; I25.2 Old myocardial infarction; Z66 Do not resuscitate; Z79.01 Long term (current) use of anticoagulants; Z79.02 Long term (current) use of antithrombotics/antiplatelets; Z79.2 Long term (current) use of antibiotics; Z79.4 Long term (current) use of insulin; Z79.85 Long-term (current) use of injectable non-insulin antidiabetic drugs; Z79.899 Other long term (current) drug therapy; Z88.0 Allergy status to penicillin; Z88.5 Allergy status to narcotic agent; Z91.041 Radiographic dye allergy status; Z95.5 Presence of coronary angioplasty implant and graft
CPT/HCPCS: 36415; 80053; 82947; 83735; 84439; 84443; 84481; 84484; 85025; 93005; 93010; 94762; 96374; 96375; 99285-25; A9270; G0378; J1815; J7030

== ENCOUNTER 2024-12-23 17:27 | Emergency (ER) | payer MEDICARE ==
[~2024-12-23] VITALS: Ht 162.6 cm; Wt 77.6 kg
[~2024-12-23 17:27] MED LIST changes: +Amitriptyline H10 MG PO; +KLOR-CON 1010 ME9 PO; +LAMOTRIGINE100 M1 PO; +MOUNJARO5 MG/0.5 M SQ; +Nitrofurantoin100 M1 PO
[2024-12-23] MEDS ORDERED: DiphenhydrAMINE HCl 50 MG/ML 1ML Vial IV ONE (18:00)
[2024-12-23 18:06] LABS: Source, Urine Clean Catch
[2024-12-23 18:10] LABS: Bilirubin, Urine Neg (Neg); Color, Urine Yellow (P-Yellow); Glucose Qualitative, Urine Neg (Neg); Ketones, Urine Neg (Neg); Leukocyte Esterase, Urine Neg (Neg); Protein, Urine 2+ (Neg); Specific Gravity, Urine 1.005 (1.003-1.022); Urobilinogen, Urine NORM (Normal)
[2024-12-23 18:18] LABS: White Blood Cells, Urine 0-2 /hpf (0-5)
[2024-12-23 18:49] LABS: BASOPHILS ABSOLUTE AUTO 0.06 K/mm3 (0.00-0.23); BASOPHILS PERCENT AUTO 1 % (0-2); EOSINOPHILS ABSOLUTE AUTO 0.15 K/mm3 (0.00-0.68); EOSINOPHILS PERCENT AUTO 2 % (0-6); Hematocrit 45.3 % (33.0-51.0); Hemoglobin 15.3 g/dL (11.5-16.0); IMMATURE GRAN ABSOLUTE AUTO 0.03 K/mm3 (0.00-0.10); IMMATURE GRAN PERCENT AUTO 0 % (0-1); LYMPHOCYTES ABSOLUTE AUTO 1.75 K/mm3 (0.84-5.20); LYMPHOCYTES PERCENT AUTO 18 % (21-46); MONOCYTES ABSOLUTE AUTO 0.93 K/mm3 (0.16-1.47); MONOCYTES PERCENT AUTO 10 % (4-13); Mean Corpuscular HGB Conc 33.8 g/dL (31.5-36.5); Mean Corpuscular Volume 90 fL (80-100); NEUTROPHILS ABSOLUTE AUTO 6.60 K/mm3 (1.96-9.15); NEUTROPHILS PERCENT AUTO 69 % (41-73); NRBC ABSOLUTE 0.00 K/mm3 (0.00-0.02); NRBC Auto 0.0 /100 WBC (0.0-0.2); Platelet Count 285 K/mm3 (150-400); RDW Coefficient Variation 13.7 % (11.7-14.2); RDW Standard Deviation 46.0 fL (35.1-46.3)
[2024-12-23 19:13] LABS: Alanine Aminotransfer (ALT/SGP 25.0 U/L (12-78); Albumin, Blood 3.3 g/dL (3.4-5.0); Albumin/Globulin Ratio 0.9 (0.8-1.8); Anion Gap 8.0 mmol/L (3-11); Aspartate Aminotrans (AST/SGOT 18.0 U/L (12-37); Bilirubin, Total 0.6 mg/dL (0.1-1.0); Blood Urea Nitrogen 11.0 mg/dL (8-24); CO2, Blood 27.0 mmol/L (21-32); Calcium, Blood 9.7 mg/dL (8.5-10.1); Chloride, Blood 104.0 mmol/L (98-108); Creatinine, Blood 0.93 mg/dL (0.40-1.00); Globulin, Blood 3.8 g/dL (2.2-4.0); Glucose, Blood 113.0 mg/dL (70-99); Potassium, Blood 3.4 mmol/L (3.5-5.5); Sodium, Blood 136.0 mmol/L (136-145); Total Protein, Blood 7.1 g/dL (6.4-8.2)
[2024-12-24] MEDS ORDERED: RX Prepack 6 Tabs Oxycodone 5mg UD ONE (00:50)
[2024-12-24 01:30] VITALS: BP 132/69
== END 2024-12-24 01:35 | disposition home or self-care (01) ==
LOC: ER 17:27
PROVIDERS: Student in an Organized Health Care Education/Training Program
DX: N20.0 Calculus of kidney (principal); E11.9 Type 2 diabetes mellitus without complications; I50.9 Heart failure, unspecified; I48.91 Unspecified atrial fibrillation; Z90.710 Acquired absence of both cervix and uterus; Z87.442 Personal history of urinary calculi; Z59.89 Other problems related to housing and economic circumstances; Z88.0 Allergy status to penicillin; Z88.5 Allergy status to narcotic agent; Z79.899 Other long term (current) drug therapy; Z79.01 Long term (current) use of anticoagulants
CPT/HCPCS: 74177; 80053; 81001; 85025; 96374; 96375; 99284-25; A9270; J1200; J2919; Q9967

== ENCOUNTER 2025-03-31 06:18 | Emergency (ER) | payer MEDICARE ==
[~2025-03-31] VITALS: Ht 162.6 cm; Wt 76.2 kg
[2025-03-31 06:58] LABS: BASOPHILS ABSOLUTE AUTO 0.06 K/mm3 (0.00-0.23); BASOPHILS PERCENT AUTO 0 % (0-2); EOSINOPHILS ABSOLUTE AUTO 0.13 K/mm3 (0.00-0.68); EOSINOPHILS PERCENT AUTO 1 % (0-6); Hematocrit 49.5 % (33.0-51.0); Hemoglobin 16.6 g/dL (11.5-16.0); IMMATURE GRAN ABSOLUTE AUTO 0.05 K/mm3 (0.00-0.10); IMMATURE GRAN PERCENT AUTO 0 % (0-1); LYMPHOCYTES ABSOLUTE AUTO 1.82 K/mm3 (0.84-5.20); LYMPHOCYTES PERCENT AUTO 14 % (21-46); MONOCYTES ABSOLUTE AUTO 0.73 K/mm3 (0.16-1.47); MONOCYTES PERCENT AUTO 5 % (4-13); Mean Corpuscular HGB Conc 33.5 g/dL (31.5-36.5); Mean Corpuscular Volume 94 fL (80-100); NEUTROPHILS ABSOLUTE AUTO 10.70 K/mm3 (1.96-9.15); NEUTROPHILS PERCENT AUTO 79 % (41-73); NRBC ABSOLUTE 0.00 K/mm3 (0.00-0.02); NRBC Auto 0.0 /100 WBC (0.0-0.2); Platelet Count 256 K/mm3 (150-400); RDW Coefficient Variation 14.6 % (11.7-14.2); RDW Standard Deviation 49.4 fL (35.1-46.3)
[2025-03-31 07:01] LABS: Alanine Aminotransfer (ALT/SGP 52.0 U/L (12-78); Albumin, Blood 3.7 g/dL (3.4-5.0); Albumin/Globulin Ratio 1.0 (0.8-1.8); Anion Gap 9.0 mmol/L (3-11); Aspartate Aminotrans (AST/SGOT 96.0 U/L (12-37); Bilirubin, Total 0.8 mg/dL (0.1-1.0); Blood Urea Nitrogen 13.0 mg/dL (8-24); CO2, Blood 27.0 mmol/L (21-32); Calcium, Blood 9.3 mg/dL (8.5-10.1); Chloride, Blood 105.0 mmol/L (98-108); Creatinine, Blood 0.87 mg/dL (0.40-1.00); Globulin, Blood 3.8 g/dL (2.2-4.0); Glucose, Blood 176.0 mg/dL (70-99); Potassium, Blood 3.7 mmol/L (3.5-5.5); Sodium, Blood 137.0 mmol/L (136-145); Total Protein, Blood 7.5 g/dL (6.4-8.2)
[2025-03-31] MEDS ORDERED: NS 1,000 ML IV SCH (08:05)
[2025-03-31] MEDS ORDERED: Ketorolac Tromethamine 30mg Vial IV ONE (08:05)
[2025-03-31] MEDS ORDERED: Ondansetron HCl 2 MG / ML 2ML Vial IV ONE (08:05)
[2025-03-31 09:09] LABS: Bilirubin, Urine Neg (Neg); Glucose Qualitative, Urine Neg (Neg); Ketones, Urine Neg (Neg); Leukocyte Esterase, Urine 1+ (Neg); Protein, Urine 2+ (Neg); Specific Gravity, Urine 1.015 (1.003-1.022); Urobilinogen, Urine NORM (Normal)
[2025-03-31 09:11] LABS: Color, Urine Yellow (P-Yellow)
[2025-03-31 09:17] LABS: Red Blood Cells, Urine 25-50 /hpf (0-2)
[2025-03-31] MEDS ORDERED: CefTRIAXone Sodium 1,000 MG in NS 50 ML IV ONE (09:25)
[2025-03-31] MEDS ORDERED: NS 50 ML IV ONE (09:35)
[2025-03-31] MEDS ORDERED: OXYC5 PO (09:38)
[2025-03-31] MEDS ORDERED: CEPH500 PO (09:38)
[2025-03-31 10:22] VITALS: BP 147/74
== END 2025-03-31 10:26 | disposition home or self-care (01) ==
LOC: ER 06:18
PROVIDERS: Emergency Medicine
DX: N39.0 Urinary tract infection, site not specified (principal); E11.9 Type 2 diabetes mellitus without complications; Z91.041 Radiographic dye allergy status; Z88.0 Allergy status to penicillin; Z88.5 Allergy status to narcotic agent
CPT/HCPCS: 74176; 80053; 81001; 83690; 85025; 87086; 96361; 96365-59; 96375; 99284-25; J1885; J2405; J7030